=== PATIENT | female | born 1955 | race Caucasian/White ===

== ENCOUNTER 2017-12-02 19:57 | Inpatient (IN) ==
[2017-12-02] MEDS ORDERED: NS 500 ML IV ONE (20:19)
--- NOTE | 2017-12-02 20:33 | Emergency Department Report ---
Syncope HPI - General Chief Complaint: Anxiety Stated Complaint: dizziness,SOA,BP elevated Time Seen by Provider: 12/02/17 20:19 Source: patient, family, RN notes reviewed, old records reviewed Mode of arrival: ambulatory Limitations: no limitations - History of Present Illness HPI narrative: 62yo woman presents to the ER for evaluation of 'dizziness'. Pt has not felt well for 2+ weeks. She has frequent 'dizzy' spells (not room spinning or pre- syncope, but feeling unwell). In addition, pt has felt SOA and weak. Pt has not sought treatment for this until now; kids are with her and are concerned. Pt smokes at least 1PPD (since she was a teenager); drinks quite a bit daily. Has not seen a physician for several years. Denies any PMHx. MD complaint: felt faint Onset (ago): week(s) Current symptoms: lightheaded, weakness Treatments prior to arrival: none - Related Data Previous Rx's Medication Instructions Recorded Amlodipine [Norvasc] 5 mg PO DAILY #30 tab 12/04/17 Labetalol [Normodyne] 200 mg PO BID #120 tab 12/04/17 Allergies Allergy/AdvReac Type Severity Reaction Status Date / Time Penicillins Allergy Verified 12/02/17 20:45 acetaminophen [From Lortab] AdvReac Verified 12/02/17 20:45 hydrocodone [From Lortab] AdvReac Verified 12/02/17 20:45 Review of Systems All systems: reviewed and negative except as stated Constitutional: Reports: as per HPI, weakness. Denies: fever, chills, weight change, night sweats Neurological: Reports: as per HPI, weakness. Denies: headache, numbness, paresthesias, confusion, abnormal gait, vertigo PFS Patient Stated Medical History Dental Problems Yes: Dentures Hypertension Yes Depression Yes - Social History Smoking status: Current every day smoker Physical Exam - Limitations Limitations: no limitations - General General appearance: alert, in no apparent distress, obese - Head Head exam: atraumatic, normocephalic, normal inspection - Eye Eye exam: Present: normal appearance, PERRL, EOMI. Absent: scleral icterus - ENT ENT exam: Present: normal exam, normal oropharynx, mucous membranes moist, normal external ear exam. Absent: TM's normal bilaterally (Obscured by cerumen b/l) - Neck Neck exam: Present: normal inspection, full ROM, trachea midline. Absent: tenderness, lymphadenopathy - Chest Chest inspection: Present: normal inspection, symmetric chest wall rise. Absent : tenderness, rash - Respiratory Respiratory exam: Present: normal lung sounds bilaterally. Absent: respiratory distress, wheezes, stridor, prolonged expiratory phase, crackles - Cardiovascular Cardiovascular exam: Present: regular rate, normal rhythm, normal heart sounds. Absent: rubs, gallop, clicks - Abdominal Exam Abdominal exam: Present: soft, normal bowel sounds. Absent: distention, tenderness, guarding, rebound, rigidity - Extremities Exam Extremities exam: Present: normal inspection, full ROM, normal capillary refill. Absent: tenderness, pedal edema - Skin Skin exam: Present: warm, dry, intact, other (Face is flushed). Absent: rash - Neurological Exam Neurological exam: Present: alert, oriented X3, CN II-XII intact, normal gait, reflexes normal - Psychiatric Psychiatric exam: Present: normal affect, normal mood Course - Consultations Consultation #1: Cardiology: Will admit to obs for elevated troponin and uncontrolled HTN. Time: 23:29 Vital Signs Temperature 97.8 F 12/02/17 20:01 Pulse Rate 105 H 12/02/17 20:01 Respiratory Rate 24 12/02/17 20:01 Blood Pressure 138/114 H 12/02/17 20:01 Pulse Oximetry 93 12/02/17 20:01 Temperature 98.2 F 12/04/17 16:01 Pulse Rate 74 12/04/17 16:01 Respiratory Rate 20 12/04/17 16:01 Blood Pressure 139/72 12/04/17 16:01 Pulse Oximetry 95 12/04/17 16:01 Syncope - MDM Narrative Medical decision making narrative: Pt with uncontrolled HTN and an uptrending troponin. Discussed with cardiology, who will admit obs for further eval/mgmt. - Differential Diagnosis Likely: vasovagal syncope, complete atrioventricular block, subarachnoid hemorrhage, pulmonary embolism, dehydration - Medical Records Attestation: I reviewed the patient's medical records. - Lab Data Attestation: I reviewed the patient's lab results. Result diagrams: 12/04/17 04:42 12/04/17 04:42 Lab Results 07/23/18 07/23/18 07/23/18 Range/Units 20:32 20:32 20:32 WBC 8.6 (4.5-11.0) T/MM3 RBC 4.65 (4.00-5.20) M/MM3 Hgb 15.0 (12-16) GM/DL Hct 45.8 (36-46) % MCV 98.5 (80-100) UM3 MCH 32.3 (26-34) UUG MCHC 32.8 (31-37) GM/DL RDW Std Deviation 50.3 H (36.9-50.2) FL Plt Count 81 L (130-400) T/MM3 MPV 11.9 (9.4-12.4) UM3 Immature Gran % (Auto) 0.1 (0.0-0.5) % Neut % (Auto) 44.0 (33-66) % Lymph % (Auto) 42.5 (23-45) % [place] % (Auto) 10.5 H (0-9.0) % Eos % (Auto) 2.2 (0-4) % Baso % (Auto) 0.7 (0-2) % Neut # (Auto) 3.8 (1.8-7.7) T/MM3 Lymph # (Auto) 3.7 (1-4.8) T/MM3 [place] # (Auto) 0.9 H (0-0.8) T/MM3 Eos # (Auto) 0.2 (0-0.5) T/MM3 Baso # (Auto) 0.1 (0-0.2) T/MM3 Abs Immat Gran (auto) 0.01 (0.00-0.03) T/MM3 D-Dimer 691 H (0-230) NG/ML Turbidity < 20 (0-20) Sodium 147 H (136-146) MEQ/L Potassium 3.9 (3.6-5) MEQ/L Chloride 108 H (98-107) MEQ/L Carbon Dioxide 26 (22-30) MEQ/L Anion Gap 13 (5-15) meq/L BUN 5.0 L (7-17) MG/DL Creatinine 0.8 (0.7-1.2) mg/dL GFR Calculation 72 BUN/Creatinine Ratio 6 (6-26) RATIO Glucose 97 (65-110) MG/DL Calculated Osmolality 279 (261-280) MOSM/KG Calcium 9.0 (8.4-10.2) MG/DL Magnesium (1.6-2.3) MG/DL Icterus Index < 2 (0-7) Troponin I 0.014 (0-0.12) ng/ml NT-Pro-B Natriuret Pep 319 H (0-175) pg/mL TSH (0.47-4.68) mIU/L Specimen Hemolysis < 15 (0-25) Ur Collection Type Urine Color (YELLOW) Urine Clarity Urine pH (5.0-8.0) Ur Specific [place] (1.015-1.025) Urine Protein (NEGATIVE) Urine Glucose (UA) (NEGATIVE) Urine Ketones (NEGATIVE) Urine Occult Blood (NEGATIVE) Urine Nitrate (NEGATIVE) Urine Bilirubin (NEGATIVE) Urine Urobilinogen (NORMAL) EU/DL Ur Leukocyte Esterase (NEGATIVE) Urine RBC (0-3) /HPF Urine WBC (0-5) /HPF Ur Squamous Epith Cells Urine Bacteria (NEGATIVE) Ur Culture Indicated? 12/02/17 12/02/17 12/03/17 Range/Units 20:43 22:32 04:22 WBC 6.1 (4.5-11.0) T/MM3 RBC 4.19 (4.00-5.20) M/MM3 Hgb 13.4 (12-16) GM/DL Hct 41.5 (36-46) % MCV 99.0 (80-100) UM3 MCH 32.0 (26-34) UUG MCHC 32.3 (31-37) GM/DL RDW Std Deviation 50.1 (36.9-50.2) FL Plt Count 78 L (130-400) T/MM3 MPV 12.4 (9.4-12.4) UM3 Immature Gran % (Auto) 0.2 (0.0-0.5) % Neut % (Auto) 60.2 (33-66) % Lymph % (Auto) 27.8 (23-45) % [place] % (Auto) 9.8 H (0-9.0) % Eos % (Auto) 1.3 (0-4) % Baso % (Auto) 0.7 (0-2) % Neut # (Auto) 3.7 (1.8-7.7) T/MM3 Lymph # (Auto) 1.7 (1-4.8) T/MM3 [place] # (Auto) 0.6 (0-0.8) T/MM3 Eos # (Auto) 0.1 (0-0.5) T/MM3 Baso # (Auto) 0.0 (0-0.2) T/MM3 Abs Immat Gran (auto) 0.01 (0.00-0.03) T/MM3 D-Dimer (0-230) NG/ML Turbidity (0-20) Sodium (136-146) MEQ/L Potassium (3.6-5) MEQ/L Chloride (98-107) MEQ/L Carbon Dioxide (22-30) MEQ/L Anion Gap (5-15) meq/L BUN (7-17) MG/DL Creatinine (0.7-1.2) mg/dL GFR Calculation BUN/Creatinine Ratio (6-26) RATIO Glucose (65-110) MG/DL Calculated Osmolality (261-280) MOSM/KG Calcium (8.4-10.2) MG/DL Magnesium (1.6-2.3) MG/DL Icterus Index (0-7) Troponin I 0.027 D (0-0.12) ng/ml NT-Pro-B Natriuret Pep (0-175) pg/mL TSH (0.47-4.68) mIU/L Specimen Hemolysis < 15 (0-25) Ur Collection Type Urine, void-cc/notcc Urine Color Yellow (YELLOW) Urine Clarity Clear Urine pH 7.0 (5.0-8.0) Ur Specific [place] 1.010 L (1.015-1.025) Urine Protein 2+ A (NEGATIVE) Urine Glucose (UA) Negative (NEGATIVE) Urine Ketones Negative (NEGATIVE) Urine Occult Blood Trace-lysed (NEGATIVE) Urine Nitrate Negative (NEGATIVE) Urine Bilirubin Negative (NEGATIVE) Urine Urobilinogen 0.2 (NORMAL) EU/DL Ur Leukocyte Esterase Negative (NEGATIVE) Urine RBC None seen (0-3) /HPF Urine WBC 0-1 (0-5) /HPF Ur Squamous Epith Cells 5-10 Urine Bacteria Trace H (NEGATIVE) Ur Culture Indicated? Cult not indicated 12/03/17 12/03/17 Range/Units 04:22 09:59 WBC (4.5-11.0) T/MM3 RBC (4.00-5.20) M/MM3 Hgb (12-16) GM/DL Hct (36-46) % MCV (80-100) UM3 MCH (26-34) UUG MCHC (31-37) GM/DL RDW Std Deviation (36.9-50.2) FL Plt Count (130-400) T/MM3 MPV (9.4-12.4) UM3 Immature Gran % (Auto) (0.0-0.5) % Neut % (Auto) (33-66) % Lymph % (Auto) (23-45) % [place] % (Auto) (0-9.0) % Eos % (Auto) (0-4) % Baso % (Auto) (0-2) % Neut # (Auto) (1.8-7.7) T/MM3 Lymph # (Auto) (1-4.8) T/MM3 [place] # (Auto) (0-0.8) T/MM3 Eos # (Auto) (0-0.5) T/MM3 Baso # (Auto) (0-0.2) T/MM3 Abs Immat Gran (auto) (0.00-0.03) T/MM3 D-Dimer (0-230) NG/ML Turbidity < 20 (0-20) Sodium 149 H (136-146) MEQ/L Potassium 3.9 (3.6-5) MEQ/L Chloride 111 H (98-107) MEQ/L Carbon Dioxide 25 (22-30) MEQ/L Anion Gap 13 (5-15) meq/L BUN 5.0 L (7-17) MG/DL Creatinine 0.7 (0.7-1.2) mg/dL GFR Calculation 84 BUN/Creatinine Ratio 7 (6-26) RATIO Glucose 86 (65-110) MG/DL Calculated Osmolality 282 H (261-280) MOSM/KG Calcium 8.5 (8.4-10.2) MG/DL Magnesium 1.8 (1.6-2.3) MG/DL Icterus Index < 2 (0-7) Troponin I 0.029 0.019 (0-0.12) ng/ml NT-Pro-B Natriuret Pep (0-175) pg/mL TSH 1.01 (0.47-4.68) mIU/L Specimen Hemolysis < 15 < 15 (0-25) Ur Collection Type Urine Color (YELLOW) Urine Clarity Urine pH (5.0-8.0) Ur Specific [place] (1.015-1.025) Urine Protein (NEGATIVE) Urine Glucose (UA) (NEGATIVE) Urine Ketones (NEGATIVE) Urine Occult Blood (NEGATIVE) Urine Nitrate (NEGATIVE) Urine Bilirubin (NEGATIVE) Urine Urobilinogen (NORMAL) EU/DL Ur Leukocyte Esterase (NEGATIVE) Urine RBC (0-3) /HPF Urine WBC (0-5) /HPF Ur Squamous Epith Cells Urine Bacteria (NEGATIVE) Ur Culture Indicated? - Radiology Data Attestation: I reviewed the patient's radiology results. CXR: No acute CT pathology. CT Head: FINDINGS: Brain: There are global involutional changes of the brain which are in keeping with the patient's age. Periventricular hypodensities most likely reflect chronic microvascular ischemic disease in this patient. There is no evidence of intracranial hemorrhage. No abnormal extra- axial fluid collections are identified. No mass effect or midline shift is seen. Ventricles: Unremarkable. No ventriculomegaly. Bones/joints: Unremarkable. No acute fracture. Soft tissues: Unremarkable. Vasculature: Atherosclerotic vascular disease is noted at the level of the skull base. Sinuses: Unremarkable as visualized. No acute sinusitis. Mastoid air cells: Unremarkable as visualized. No mastoid effusion. Orbits: Bilateral proptosis is noted. Correlate with clinical information regarding thyroid function. IMPRESSION: No acute intracranial pathology demonstrated by CT CT-PE: FINDINGS: Pulmonary arteries: There are no abnormal filling defects within the pulmonary arterial system. The examination is negative for pulmonary thromboembolism. Aorta: Atherosclerotic vascular disease is noted. No thoracic aortic aneurysm. Lungs: There are mild atelectatic changes at the posterior right lower lobe. No mass. Pleural space: Unremarkable. No significant effusion. No pneumothorax. Heart: Unremarkable. No cardiomegaly. No significant pericardial effusion. No evidence of RV dysfunction. Bones/joints: No acute fracture. No dislocation. Lymph nodes: Unremarkable. No enlarged lymph nodes. Liver: Suspect hepatic steatosis. Gallbladder and bile ducts: Cholelithiasis is noted Stomach and bowel: Diverticulosis coli is noted. IMPRESSION: Negative for pulmonary thromboembolism. Mild atelectatic changes at the posterior right lower lobe. Cholelithiasis. Diverticulosis coli. Suspect hepatic steatosis. - EKG Data EKG #1 EKG attestation: Yes: I reviewed and interpreted this EKG. EKG shows normal: sinus rhythm, axis, intervals, QRS complexes Interpretation: nonspecific ST-T wave changes EKG #2 EKG attestation: Yes: I reviewed and interpreted this EKG. EKG shows normal: sinus rhythm, axis, intervals, QRS complexes Rate: tachycardia Interpretation: nonspecific ST-T wave changes Disposition Clinical Impression: Elevated troponin, Hypertensive crisis Disposition: 02 To [facility] Condition: Improved Time of Disposition: 03:35 - Seen By: physician
[2017-12-02] MEDS: SALINE FLUSH 10ml SYRINGE IVF PRN (20:40)
[2017-12-02] MEDS ORDERED: IOHEXOL 350mg/ml 75ml INJECTION ONE (21:31)
[2017-12-02] MEDS ORDERED: SALINE FLUSH 10ml SYRINGE ONE (21:31)
[2017-12-02] MEDS ORDERED: ALBUTEROL/IPRATROPIUM 2.5mg-0.5mg/3ml NEB AEROSOL ONE (22:20)
[2017-12-03 01:08] VITALS: BMI 29.3
[2017-12-03] MEDS ORDERED: ONDANSETRON 4 MG/2 ML INJECTION IVP PRN (02:27)
[2017-12-03] MEDS: AMLODIPINE 5 MG TABLET PO SCH ×2 (02:59→08:34)
[2017-12-03] MEDS ORDERED: IBUPROFEN 200 MG TABLET PO PRN (06:00)
--- NOTE | 2017-12-03 08:26 | CT Scan Report ---
Indication: Dizziness; elevated d-dimer PROCEDURE: CT angio pulm emboli: Encounter: Initial Comparison: None. Technique: Following rapid administration of intravenous contrast, multiple contiguous helical axial slices were obtained from the level of the diaphragm to the level the thoracic inlet. This volumetric data set then served as the basis for further 2 dimensional MIP reconstructions in sagittal and coronal planes. Automated Exposure Control and Iterative Reconstruction dose reducing techniques were utilized. FINDINGS: There is no pulmonary embolism. The trachea and mainstem bronchi are patent. There is no consolidation, pleural effusion, or pneumothorax. There are no masses or nodules seen in the lung parenchyma. There is no axillary, hilar, or mediastinal lymphadenopathy. The heart size is normal. There is no pericardial effusion. The visualized portions of the thoracic aorta and major branch vessels of the aortic arch fills with contrast homogenously and are unremarkable. The thyroid gland enhances homogenously and is unremarkable. The visualized portions of the upper abdominal structures demonstrates geller colonic diverticulosis. The gallbladder is thin-walled and nondistended with some dependent stones. The visualized bones are unremarkable. IMPRESSION: No evidence for pulmonary embolus. Cholelithiasis without evidence for cholecystitis. Pancolonic diverticulosis. .
--- NOTE | 2017-12-03 08:33 | CT Scan Report ---
Indication: Dizziness PROCEDURE: CT head/brain wo con: Encounter: Initial Comparison: None Technique: Axial CT images through the head were performed without contrast. Iterative Reconstruction dose reducing technique was utilized. FINDINGS: The ventricles are of normal size, shape, and contour for the patient's age. There are scattered areas of low attenuation in the white matter which most likely represent changes from chronic microvascular ischemia. The brainstem, cerebellum, and cerebral hemispheres otherwise have a normal morphology and CT attenuation. There is no evidence of midline displacement. No hemorrhage, signs of acute territorial stroke, mass effect, mass lesions, or edema is evident. The visualized portions of the skull base, midface, and calvarium demonstrate no abnormality. The paranasal sinuses are well aerated and free of significant disease. The tympanic and mastoid cavities appear normal. IMPRESSION: No acute intracranial abnormality or hemorrhage. .
[2017-12-03] MEDS: MULTI-VITAMIN + MINERAL TABLET PO SCH (08:34)
[2017-12-03] MEDS: FOLIC ACID 1 MG TABLET PO SCH (08:34)
--- NOTE | 2017-12-03 08:34 | XRay Report ---
Indication: Dyspnea PROCEDURE: XR chest 2V: Encounter: Initial Comparison: None. Findings: Heart size is normal. The lungs are clear. There is no focal opacity to suggest atelectasis or pneumonia. No mediastinal or hilar adenopathy. No pleural effusion. There is no significant tortuosity of the descending thoracic aorta. There is no significant degenerative disc disease of the thoracic spine. IMPRESSION: No acute process. .
[2017-12-03] MEDS: ASPIRIN 81 MG CHEWABLE TABLET PO SCH (08:35)
[2017-12-03] MEDS: NICOTINE 21 MG PATCH TD SCH (08:35)
[2017-12-03] MEDS ORDERED: ASPIRIN *EC* 81 MG TABLET PO SCH (09:00)
--- NOTE | 2017-12-03 11:26 | Cardiology History & Physical ---
History of Present Illness Chief complaint: HTN HPI: Madie is a 62 year old female who presented to the ED for evaluation of ' dizziness'. She reports she has not felt well for 2+ weeks. She has frequent ' dizzy' spells. She smokes at least 1PPD (since she was a teenager), states she drinks "a lot" of liquor everyday. Has not seen a physician for close to 40 years. Denies any known PMHx. She is examined in her room on Surgical. She is alert and has several family members at the bedside. She is anxious and her hands are tremulous. She denies recent illness, fever, chills, sore throat, cough. She denies chest pain, pressure, tightness, palpitations, dyspnea, N/V/D, dysuria. Review of Systems - Constitutional Constitutional: Present: as per HPI - EENMT Eyes: Absent: change in vision Balance: Absent: vertigo Mouth/Throat: Present: as per HPI - Cardiovascular Cardiovascular: Absent: chest pain, palpitations, syncope, dyspnea on exertion, orthopnea, heart murmur Rhythm: Absent: abnormal rhythm Vascular: Present: see HPI - Respiratory Respiratory: Present: as per HPI - Gastrointestinal Gastrointestinal: Present: as per HPI - Genitourinary Genitourinary: Present: as per HPI - Neurological Neurological: Present: dizziness PFSH Patient Stated Medical History Dental Problems Yes: Dentures Hypertension Yes Depression Yes Surgical History: none Family History: No family history of CVD - Social History Smoking status: Current every day smoker Packs per day: 1 Packs-years: 50 Time spent discussing smoking cessation with patient: 3 to 10 minutes Substance use type: does not use Alcohol intake: current Alcohol intake frequency: 3 or more drinks per day Last drink: hours (ago) Household members: none Current occupational status: retired Current residence: Apartment/Private Home Medications Home Medications Medication Instructions Recorded Confirmed Type No known Home medications [No home 12/02/17 12/02/17 History meds] Allergies Allergy/AdvReac Type Severity Reaction Status Date / Time Penicillins Allergy Verified 12/02/17 20:45 acetaminophen [From Lortab] AdvReac Verified 12/02/17 20:45 hydrocodone [From Lortab] AdvReac Verified 12/02/17 20:45 Exam Vital signs: Temperature 97.8 F 12/03/17 07:25 Pulse Rate 78 12/03/17 11:08 Respiratory Rate 18 12/03/17 07:25 Blood Pressure 210/95 H 12/03/17 11:08 Pulse Oximetry 93 12/03/17 11:08 - Constitutional mild distress, well nourished, cooperative - Routine HEENT Exam Head: Present: normocephalic ENT: Present: mucous membranes moist - Routine Neck Exam Absent: JVD, carotid bruit - Routine Chest/Breast/Axilla Exam Chest wall: Absent: tenderness - Routine Respiratory Exam Present: CTA bilaterally. Absent: dyspnea, rales, wheezes - Routine Cardiovascular Exam Present: RRR, no murmur - Routine Abdominal Exam Present: soft, non tender - Routine Extremities Exam Present: no edema - Routine Skin Exam Present: intact, dry, warm - Routine Neurological Exam Present: alert, oriented X3 - Routine Psychiatric Exam Present: normal affect, normal thought process Results 12/04/17 04:42 12/04/17 04:42 Cardiac Enzymes 12/02/17 12/02/17 12/03/17 Range/Units 20:32 22:32 04:22 Troponin I 0.014 0.027 D 0.029 (0-0.12) ng/ml 12/03/17 Range/Units 09:59 Troponin I 0.019 (0-0.12) ng/ml CBC 12/02/17 12/03/17 Range/Units 20:32 04:22 WBC 8.6 6.1 (4.5-11.0) T/MM3 RBC 4.65 4.19 (4.00-5.20) M/MM3 Hgb 15.0 13.4 (12-16) GM/DL Hct 45.8 41.5 (36-46) % Plt Count 81 L 78 L (130-400) T/MM3 Neut # (Auto) 3.8 3.7 (1.8-7.7) T/MM3 Lymph # (Auto) 3.7 1.7 (1-4.8) T/MM3 [place] # (Auto) 0.9 H 0.6 (0-0.8) T/MM3 Eos # (Auto) 0.2 0.1 (0-0.5) T/MM3 Baso # (Auto) 0.1 0.0 (0-0.2) T/MM3 Comprehensive Metabolic Panel 12/02/17 12/03/17 Range/Units 20:32 04:22 Sodium 147 H 149 H (136-146) MEQ/L Potassium 3.9 3.9 (3.6-5) MEQ/L Chloride 108 H 111 H (98-107) MEQ/L Carbon Dioxide 26 25 (22-30) MEQ/L BUN 5.0 L 5.0 L (7-17) MG/DL Creatinine 0.8 0.7 (0.7-1.2) mg/dL Glucose 97 86 (65-110) MG/DL Calcium 9.0 8.5 (8.4-10.2) MG/DL Intake and Output 12/02/17 12/03/17 12/03/17 22:59 06:59 14:59 Intake Total 500 / 500 0 / 0 Balance 500 / 500 0 / 0 Intake: IV 500 / 500 Ns 500 ml @ 1000 mls/hr IV . 500 / 500 Q30M ONE Rx#:[id number] Oral 0 / 0 Other: # Voids 1 1 Weight 164 lb 0.383 oz 165 lb 12.602 oz 164 lb 14.492 oz Patient Weight 12/04/17 06:59 Weight 164 lb 14.492 oz - Imaging and Cardiology Echo: pending Imaging & Cardiology Narrative: Date of Exam: 12/02/17 Ordering Provider: Isauro Ariza DO Type of Exam(s): XR chest 2V Reason for Exam(s): Dyspnea Indication: Dyspnea PROCEDURE: XR chest 2V: Encounter: Initial Comparison: None. Findings: Heart size is normal. The lungs are clear. There is no focal opacity to suggest atelectasis or pneumonia. No mediastinal or hilar adenopathy. No pleural effusion. There is no significant tortuosity of the descending thoracic aorta. There is no significant degenerative disc disease of the thoracic spine. IMPRESSION: No acute process 12/03/17 11:23 12/03/17 11:23 Date of Exam: 12/02/17 Ordering Provider: Isauro Ariza DO Type of Exam(s): CT head/brain wo con Reason for Exam(s): Dizziness Indication: Dizziness PROCEDURE: CT head/brain wo con: Encounter: Initial Comparison: None Technique: Axial CT images through the head were performed without contrast. Iterative Reconstruction dose reducing technique was utilized. FINDINGS: The ventricles are of normal size, shape, and contour for the patient's age. There are scattered areas of low attenuation in the white matter which most likely represent changes from chronic microvascular ischemia. The brainstem, cerebellum, and cerebral hemispheres otherwise have a normal morphology and CT attenuation. There is no evidence of midline displacement. No hemorrhage, signs of acute territorial stroke, mass effect, mass lesions, or edema is evident. The visualized portions of the skull base, midface, and calvarium demonstrate no abnormality. The paranasal sinuses are well aerated and free of significant disease. The tympanic and mastoid cavities appear normal. IMPRESSION: No acute intracranial abnormality or hemorrhage. 12/03/17 11:24 Date of Exam: 12/02/17 Ordering Provider: Isauro Ariza DO Type of Exam(s): CT angio pulm emboli Reason for Exam(s): Dizziness; elevated d-dimer Indication: Dizziness; elevated d-dimer PROCEDURE: CT angio pulm emboli: Encounter: Initial Comparison: None. Technique: Following rapid administration of intravenous contrast, multiple contiguous helical axial slices were obtained from the level of the diaphragm to the level the thoracic inlet. This volumetric data set then served as the basis for further 2 dimensional MIP reconstructions in sagittal and coronal planes. Automated Exposure Control and Iterative Reconstruction dose reducing techniques were utilized. FINDINGS: There is no pulmonary embolism. The trachea and mainstem bronchi are patent. There is no consolidation, pleural effusion, or pneumothorax. There are no masses or nodules seen in the lung parenchyma. There is no axillary, hilar, or mediastinal lymphadenopathy. The heart size is normal. There is no pericardial effusion. The visualized portions of the thoracic aorta and major branch vessels of the aortic arch fills with contrast homogenously and are unremarkable. The thyroid gland enhances homogenously and is unremarkable. The visualized portions of the upper abdominal structures demonstrates geller colonic diverticulosis. The gallbladder is thin-walled and nondistended with some dependent stones. The visualized bones are unremarkable. IMPRESSION: No evidence for pulmonary embolus. Cholelithiasis without evidence for cholecystitis. Pancolonic diverticulosis. EKG interpretations - EKG EKG shows: sinus rhythm - Blocks, axis, hypertrophy, ST abn Repolarization changes or abnormalities: ST or T wave suggestive of ischemia (T wave inversion in V5, V6) Hospital Course This is a general summary of the patient's hospital course. For more details refer to the complete medical record. Time spent with patient: 25 - 35 minutes Resuscitation Status: Do Not Resuscitate Assessment and Plan - Assessment and Plan (1) Hypertensive crisis Current visit: Yes Status: Acute Unknown past medical history, hasn't been to a provider in around 40 years - Currently uncontrolled on 2 agents - LVH on echo, consistent with uncontrolled HTN - HTN possibly related to Alcohol use/withdrawal - Change Metoprolol to Labetalol 100mg BID - Continue to monitor telemetry, labs - Renal artery duplex for possible renal artery stenosis (2) Alcohol withdrawal Current visit: Yes Status: Acute Patient is vague about amount and type of alcohol use - Has visible tremor of hands and patient admits to feeling a little jittery - Serax 15mg po QID PRN withdrawal symptoms
[2017-12-03] MEDS: OXAZEPAM 15 MG CAPSULE PO PRN ×2 (11:53→19:04)
[2017-12-03] MEDS: LABETALOL 100 MG TABLET PO SCH ×2 (13:41→20:36)
--- NOTE | 2017-12-03 14:47 | Ultrasound Report ---
Indication: HTN PROCEDURE: US renal doppler: Encounter: Initial Comparison: None Findings: Scans of the kidneys demonstrate normal morphology. The right kidney measures 10.1 cm in length. The left kidney measures 11.6 cm in length. There is no collecting system dilatation, contour deforming mass, nephrolithiasis, or abnormal perinephric fluid collection. There is a simple appearing cyst in the superior pole of the right kidney that measures about 2 cm per Color Doppler imaging demonstrates normal vascularization. Duplex Doppler velocities are as follows: Right: Proximal renal artery: Mid renal artery: Distal renal artery: 65 cm/s - resistive index equals 0.79 Left: Proximal renal artery: Mid renal artery: Distal renal artery: 78 cm/s - resistive index equals 0.83 Segmental velocities are as follows: Right: Superior: Mid: 26 - resistive index equals 0.77 Inferior: 19 - resistive index equals 0.74 Left: Superior: 32 - resistive index equals 0.71 Mid: 34 - resistive index equals 0.80 Inferior: 34 - resistive index equals 0.89 Resistive indices from the intrarenal arteries in the middle and lower portions of the right kidney are normal. Resistive indices from the intrarenal arteries in the upper middle and lower portions of the left kidney are normal. The arterial waveforms demonstrate a high resistance arterial waveform in the proximal renal arteries. The renal artery to aortic ratios cannot be calculated because the central arteries are not identified. Impression: No evidence of hemodynamically significant renal arterial stenosis. Normal ranges: Some advocate a cut off of upper limit of PSV for significant stenosis of greater than 180 cm/s Some advocate a RAR greater than 3 - 3.5 Some advocate for renal artery interlobar renal artery resistive index of greater than five. Some advocate for resistive index difference between the kidneys of greater than 5%. .
[2017-12-03] MEDS: HYDRALAZINE 20 MG/ML INJECTION IVP PRN (17:49)
[2017-12-04] MEDS: AMLODIPINE 5 MG TABLET PO SCH ×2 (08:03→08:18)
[2017-12-04] MEDS: FOLIC ACID 1 MG TABLET PO SCH (08:18)
[2017-12-04] MEDS: LABETALOL 100 MG TABLET PO SCH (08:18)
[2017-12-04] MEDS: MULTI-VITAMIN + MINERAL TABLET PO SCH (08:18)
[2017-12-04] MEDS: ASPIRIN 81 MG CHEWABLE TABLET PO SCH (08:18)
[2017-12-04] MEDS ORDERED: NICOTINE PATCH REMOVAL TD SCH (09:00)
[2017-12-04] MEDS: OXAZEPAM 15 MG CAPSULE PO PRN (10:59)
[2017-12-04] MEDS: HYDRALAZINE 20 MG/ML INJECTION IVP PRN (10:59)
[2017-12-04 11:00] VITALS: RESP 20
[2017-12-04] MEDS: SALINE FLUSH 10ml SYRINGE IVF PRN (11:00)
[2017-12-04] MEDS ORDERED: LABETALOL 100 MG TABLET PO ONE (12:39)
[2017-12-04] MEDS: NICOTINE 21 MG PATCH TD SCH (13:16)
[2017-12-04 14:12] VITALS: PULSE 74
[2017-12-04 16:02] VITALS: BP 139/72; TEMP 98.2; O2SAT 95
--- NOTE | 2017-12-04 17:34 | Echocardiogram ---
DATE OF PROCEDURE 12/03/2017 PROCEDURE PERFORMED 2D echocardiography, M-mode assessment, full color spectral Doppler assessment. FINDINGS 1. LEFT VENTRICLE: Left ventricle appears normal in size. Mild concentric left ventricular hypertrophy noted. Normal left ventricle systolic function noted. Estimated ejection fraction 65%-70%. 2. RIGHT VENTRICLE: Right ventricle appears normal in size. Normal right ventricular wall thickness noted. Normal right ventricle systolic function noted. 3. RIGHT ATRIUM: Right atrium appears normal in size. 4. LEFT ATRIUM: Left atrium appears normal in size. 5. MITRAL VALVE: Acoustic windows poorly visualized with no significant mitral regurgitation noted. Only mild mitral regurgitation noted. No significant mitral stenosis noted. 6. AORTIC VALVE: Aortic valve poorly visualized on today's study. No significant aortic stenosis noted. No significant aortic vegetations noted. 7. TRICUSPID VALVE: Poorly visualized on today's study. Only trivial tricuspid regurgitation noted. 8. PULMONIC VALVE: Pulmonic valve not visualized on today's study. 9. IVC not visualized on today's study. 10. PULMONARY ARTERY: Not able to estimate pulmonary artery systolic pressure due to incomplete TR jet. CONCLUSION 1. Technically difficult study due to very poor acoustic windows limited sensitivity of the study. 2. Overall, normal left ventricular systolic function. Estimated LVEF 65%-70% . 3. Overall, normal RV systolic function. 4. No significant valvular abnormalities noted on today's study. MTDD
--- NOTE | 2017-12-04 17:54 | Discharge Summary ---
Discharge Information Date of admission: 12/03/17 13:54 Anticipated date of discharge: 12/04/17 Attending Physician: Vasquez Ramos MD Primary care physician: [facility] - Discharge Diagnosis (1) Hypertensive crisis Status: Acute (2) Alcohol withdrawal Status: Acute Uncontrolled HTN, alcohol abuse - Laboratory Labs: 12/04/17 04:42 12/04/17 04:42 - Radiology Radiology: Date of Exam: 12/02/17 Ordering Provider: Isauro Ariza DO Type of Exam(s): CT angio pulm emboli Reason for Exam(s): Dizziness; elevated d-dimer Indication: Dizziness; elevated d-dimer PROCEDURE: CT angio pulm emboli: Encounter: Initial Comparison: None. Technique: Following rapid administration of intravenous contrast, multiple contiguous helical axial slices were obtained from the level of the diaphragm to the level the thoracic inlet. This volumetric data set then served as the basis for further 2 dimensional MIP reconstructions in sagittal and coronal planes. Automated Exposure Control and Iterative Reconstruction dose reducing techniques were utilized. FINDINGS: There is no pulmonary embolism. The trachea and mainstem bronchi are patent. There is no consolidation, pleural effusion, or pneumothorax. There are no masses or nodules seen in the lung parenchyma. There is no axillary, hilar, or mediastinal lymphadenopathy. The heart size is normal. There is no pericardial effusion. The visualized portions of the thoracic aorta and major branch vessels of the aortic arch fills with contrast homogenously and are unremarkable. The thyroid gland enhances homogenously and is unremarkable. The visualized portions of the upper abdominal structures demonstrates geller colonic diverticulosis. The gallbladder is thin-walled and nondistended with some dependent stones. The visualized bones are unremarkable. IMPRESSION: No evidence for pulmonary embolus. Cholelithiasis without evidence for cholecystitis. Pancolonic diverticulosis. . Date of Exam: 12/02/17 Ordering Provider: Isauro Ariza DO Type of Exam(s): XR chest 2V Reason for Exam(s): Dyspnea Indication: Dyspnea PROCEDURE: XR chest 2V: Encounter: Initial Comparison: None. Findings: Heart size is normal. The lungs are clear. There is no focal opacity to suggest atelectasis or pneumonia. No mediastinal or hilar adenopathy. No pleural effusion. There is no significant tortuosity of the descending thoracic aorta. There is no significant degenerative disc disease of the thoracic spine. IMPRESSION: No acute process. History of Present Illness HPI: Madie is a 62 year old female who presented to the ED for evaluation of ' dizziness'. She reports she has not felt well for 2+ weeks. She has frequent ' dizzy' spells. She smokes at least 1PPD (since she was a teenager), states she drinks "a lot" of liquor everyday. Has not seen a physician for close to 40 years. Denies any known PMHx. She is examined in her room on [facility]. She is alert and has several family members at the bedside. She is anxious and her hands are tremulous. She denies recent illness, fever, chills, sore throat, cough. She denies chest pain, pressure, tightness, palpitations, dyspnea, N/V/D, dysuria. Hospital Course This is a general summary of the patient's hospital course. For more details refer to the complete medical record. Hospital course: 12/03/17 Hypertensive crisis Current visit: Yes Status: Acute - Unknown past medical history, hasn't been to a provider in around 40 years - Currently uncontrolled on 2 agents - LVH on echo, consistent with uncontrolled HTN - HTN possibly related to Alcohol use/withdrawal - Change Metoprolol to Labetalol 100mg BID - Continue to monitor telemetry, labs - Renal artery duplex for possible renal artery stenosis Alcohol withdrawal Current visit: Yes Status: Acute - Patient is vague about amount and type of alcohol use - Has visible tremor of hands and patient admits to feeling a little jittery - Serax 15mg po QID PRN withdrawal symptoms 12/04/17 BP remains elevated. Increase Labetalol to 200mg bid starting now - continue to monitor, hopes to discharge today Time spent with patient: 25 - 35 minutes Resuscitation Status: Full Code Exam Vital signs: Temperature 98.2 F 12/04/17 16:01 Pulse Rate 74 12/04/17 16:01 Respiratory Rate 20 12/04/17 16:01 Blood Pressure 139/72 12/04/17 16:01 Pulse Oximetry 95 12/04/17 16:01 - Constitutional no acute distress, well nourished, cooperative - Routine HEENT Exam Head: Present: normocephalic ENT: Present: mucous membranes moist - Routine Neck Exam Absent: JVD, carotid bruit - Routine Chest/Breast/Axilla Exam Chest wall: Absent: tenderness - Routine Respiratory Exam Present: CTA bilaterally, diminished air movement (bases). Absent: dyspnea, rales - Routine Cardiovascular Exam Present: RRR, no murmur - Routine Abdominal Exam Present: soft, non tender - Routine Extremities Exam Present: no edema, pulses intact - Routine Skin Exam Present: intact, dry, warm - Routine Neurological Exam Present: alert, oriented X3 - Routine Psychiatric Exam Present: normal affect, normal thought process Results 12/04/17 04:42 12/04/17 04:42 CBC 12/04/17 Range/Units 04:42 WBC 7.0 (4.5-11.0) T/MM3 RBC 4.41 (4.00-5.20) M/MM3 Hgb 13.9 (12-16) GM/DL Hct 43.2 (36-46) % Plt Count 77 L (130-400) T/MM3 Comprehensive Metabolic Panel 12/04/17 Range/Units 04:42 Sodium 140 D (136-146) MEQ/L Potassium 4.0 (3.6-5) MEQ/L Chloride 103 D (98-107) MEQ/L Carbon Dioxide 25 (22-30) MEQ/L BUN 19.0 H D (7-17) MG/DL Creatinine 1.3 H D (0.7-1.2) mg/dL Glucose 90 (65-110) MG/DL Calcium 8.5 (8.4-10.2) MG/DL Intake and Output 12/04/17 12/04/17 12/04/17 06:59 14:59 22:59 Intake Total 350 / 350 800 / 800 Balance 350 / 350 800 / 800 Intake: Oral 350 / 350 800 / 800 Other: Urine Appearance Clear Urine Color Yellow Urine Odor Normal # Voids 1 1 Weight 164 lb 3.91 oz Patient Weight 12/05/17 06:59 Weight 164 lb 3.91 oz - Imaging and Cardiology Imaging & Cardiology Narrative: Date of Exam: 12/03/17 Type of Exam(s): US echo doppler complete DATE OF PROCEDURE 12/03/2017 PROCEDURE PERFORMED 2D echocardiography, M-mode assessment, full color spectral Doppler assessment. FINDINGS 1. LEFT VENTRICLE: Left ventricle appears normal in size. Mild concentric left ventricular hypertrophy noted. Normal left ventricle systolic function noted. Estimated ejection fraction 65%-70%. 2. RIGHT VENTRICLE: Right ventricle appears normal in size. Normal right ventricular wall thickness noted. Normal right ventricle systolic function noted. 3. RIGHT ATRIUM: Right atrium appears normal in size. 4. LEFT ATRIUM: Left atrium appears normal in size. 5. MITRAL VALVE: Acoustic windows poorly visualized with no significant mitral regurgitation noted. Only mild mitral regurgitation noted. No significant mitral stenosis noted. 6. AORTIC VALVE: Aortic valve poorly visualized on today's study. No significant aortic stenosis noted. No significant aortic vegetations noted. 7. TRICUSPID VALVE: Poorly visualized on today's study. Only trivial tricuspid regurgitation noted. 8. PULMONIC VALVE: Pulmonic valve not visualized on today's study. 9. IVC not visualized on today's study. 10. PULMONARY ARTERY: Not able to estimate pulmonary artery systolic pressure due to incomplete TR jet. CONCLUSION 1. Technically difficult study due to very poor acoustic windows limited sensitivity of the study. 2. Overall, normal left ventricular systolic function. Estimated LVEF 65%-70% . 3. Overall, normal RV systolic function. 4. No significant valvular abnormalities noted on today's study. Date of Exam: 12/03/17 Ordering Provider: Omayra Love APRN Type of Exam(s): US renal doppler Reason for Exam(s): HTN Indication: HTN PROCEDURE: US renal doppler: Encounter: Initial Comparison: None Findings: Scans of the kidneys demonstrate normal morphology. The right kidney measures 10.1 cm in length. The left kidney measures 11.6 cm in length. There is no collecting system dilatation, contour deforming mass, nephrolithiasis, or abnormal perinephric fluid collection. There is a simple appearing cyst in the superior pole of the right kidney that measures about 2 cm per Color Doppler imaging demonstrates normal vascularization. Duplex Doppler velocities are as follows: Right: Proximal renal artery: Mid renal artery: Distal renal artery: 65 cm/s - resistive index equals 0.79 Left: Proximal renal artery: Mid renal artery: Distal renal artery: 78 cm/s - resistive index equals 0.83 Segmental velocities are as follows: Right: Superior: Mid: 26 - resistive index equals 0.77 Inferior: 19 - resistive index equals 0.74 Left: Superior: 32 - resistive index equals 0.71 Mid: 34 - resistive index equals 0.80 Inferior: 34 - resistive index equals 0.89 Resistive indices from the intrarenal arteries in the middle and lower portions of the right kidney are normal. Resistive indices from the intrarenal arteries in the upper middle and lower portions of the left kidney are normal. The arterial waveforms demonstrate a high resistance arterial waveform in the proximal renal arteries. The renal artery to aortic ratios cannot be calculated because the central arteries are not identified. Impression: No evidence of hemodynamically significant renal arterial stenosis. Normal ranges: Some advocate a cut off of upper limit of PSV for significant stenosis of greater than 180 cm/s Some advocate a RAR greater than 3 - 3.5 Some advocate for renal artery interlobar renal artery resistive index of greater than five. Some advocate for resistive index difference between the kidneys of greater than 5%. . 12/04/17 17:53 12/04/17 17:54 - EKG Interpretation EKG: sinus rhythm Discharge Plan - Med Rec/Dispo Referrals/Follow Up: Vasquez Ramos MD [Physician] - 1 Week Prescriptions: New Amlodipine [Norvasc] 5 mg PO DAILY #30 tab Labetalol [Normodyne] 200 mg PO BID #120 tab - Disposition 01 Discharged Home, Self-Care - Dismissal Complete Discharge Instructions are:: Complete
[2017-12-04] MEDS ORDERED: LABETALOL 100 MG TABLET PO SCH (21:00)
== END 2017-12-04 18:20 | disposition home or self-care (01) | DRG 305 ==
LOC: ED 19:57 → EDHOLD 19:57 → SRG 12-03 00:52
PROVIDERS: ADMIT Internal Medicine Interventional Cardiology; ATTEND Internal Medicine Interventional Cardiology